=== PATIENT | female | born 1950 ===

== ENCOUNTER 2016-10-07 18:35 | Inpatient (IN) | payer MEDICARE ==
--- NOTE | 2016-10-07 19:11 | Emergency Department Report ---
Chief Complaint: Extremity Injury, Lower Stated Complaint: LEGS SWELLING Time Seen by Provider: 10/07/16 19:07 - HPI History of Present Illness: Patient is a 66 y/o female with alcohol addiction who presents due to bilateral leg swelling x 2 days. Patient denies any SOB. Patient states that she has dull pressure in her chest. She denies any nausea, vomiting, diaphoresis or arm pain. Patient is here for medical clearance for admission to [place] for alcohol addiction. No SI or HI. - ROS Review of Systems: see HPI - Exam Vital Signs: Vital Signs 10/07/16 18:58 Temperature 99 F Pulse Rate 103 H Respiratory 20 Rate Blood Pressure 127/68 O2 Sat by Pulse 100 Oximetry Physical Exam: BILATERAL LOWER LEG PITTING EDEMA MSE screening note: Focused history and physical exam performed. Due to findings the following was ordered:CHEST PAIN PROTOCOL ED Disposition for MSE Condition: Stable
[2016-10-07 20:29] LABS: Hematocrit 27.3 % (30.3-42.9); Hemoglobin 9.1 gm/dl (10.1-14.3); Mean Corpuscular HGB Conc 33 % (30-34); Mean Corpuscular Hemoglobin 35 pg (28-32); Mean Corpuscular Volume 105 fl (79-97); Platelet Count 186 K/mm3 (140-440); Red Blood Count 2.59 M/mm3 (3.65-5.03); Red Cell Distribution Width 14.9 % (13.2-15.2); White Blood Count 3.2 K/mm3 (4.5-11.0)
[2016-10-07 20:50] LABS: Anion Gap 17 mmol/L; BUN/Creatinine Ratio 16.66; Blood Urea Nitrogen 10 mg/dL (7-17); Calcium 8.7 mg/dL (8.4-10.2); Carbon Dioxide 24 mmol/L (22-30); Chloride 104.6 mmol/L (98-107); Glucose 92 mg/dL (65-100); Potassium 4.2 mmol/L (3.6-5.0); Sodium 141 mmol/L (137-145)
[2016-10-07 21:16] LABS: Urine Drugs of Abuse Note Disclamer
[2016-10-07 21:28] LABS: Basophils % (Manual) 0 % (0.0-1.8); Blastocytes % (Manual) 0 %
[2016-10-07 21:31] LABS: Anisocytosis Few; Diff Status Complete; Platelet Estimate Consistent w Auto
[2016-10-07 21:49] LABS: Bacteria,Urine 1+ /HPF (Negative); Bilirubin,Urine NEG (Negative); Blood,Urine NEG (Negative); Ketones,Urine NEG (Negative); Leukocyte Esterase,Urine SM (Negative); Nitrite,Urine NEG (Negative); Protein,Urine <15 mg/dL mg/dL (Negative); Urobilinogen,Urine < 2.0 mg/dL (<2.0)
--- NOTE | 2016-10-08 10:42 | Emergency Department Report ---
ED General Adult HPI - General Chief complaint: Extremity Problem,Nontraumatic Stated complaint: LEGS SWELLING Time Seen by Provider: 10/08/16 06:24 Source: patient, RN notes reviewed, old records reviewed Mode of arrival: Ambulatory Limitations: Physical Limitation - History of Present Illness Initial comments: This is a 66-year-old female, previously unknown to me. Past medical history includes hypertension, high cholesterol, congestive heart failure (does not know her ejection fraction), had a recent cardiac catheterization 3 weeks ago at [facility] in [facility] (states my heart is very weak), HIV. Patient does not know her CD4 count, but reports undetectable viral load. She is on highly active antiretroviral therapy. The patient presents to the ER with 3 days of lower extremity swelling. The extremity swelling is constant. There are no dietary indiscretions. She reports compliance with her medications. She also complains of chest pain. The chest pain is central and left-sided. It radiates to the jaw. It is intermittent. Has no exacerbating or relieving factors. -: Gradual Location: chest, left, right, lower extremity Radiation: neck Severity scale (0 -10): 8 Quality: aching Consistency: intermittent Improves with: none Worsens with: none Associated Symptoms: chest pain, loss of appetite, shortness of breath, weakness - Related Data Home Medications Medication Instructions Recorded Confirmed Last Taken Bisoprolol Fumarate [Zebeta] 2.5 mg PO BID 10/07/16 10/07/16 10/07/16 Dicyclomine [Bentyl] 10 mg PO QID 10/07/16 10/07/16 10/07/16 Emtricitabine/Tenofovir [Truvada 2 each PO DAILY 10/07/16 10/08/16 10/07/16 100 mg-150 mg Tablet] Gabapentin [Neurontin] 300 mg PO Q8HR 10/07/16 10/07/16 Unknown Hydroxyzine HCl 25 mg PO Q8H 10/07/16 10/07/16 Unknown Insentress 400 mg PO BID 10/07/16 10/08/16 10/07/16 Lisinopril [Zestril TAB] 10 mg PO QDAY 10/07/16 10/07/16 10/07/16 Meloxicam [Mobic] 7.5 mg PO BID 10/07/16 10/07/16 10/06/16 Pantoprazole [Protonix] 40 mg PO QDAY 10/07/16 10/07/16 10/07/16 Potassium Chloride 10 meq PO DAILY 10/07/16 10/07/16 Unknown Spironolactone [Aldactone] 25 mg PO QDAY 10/07/16 10/07/16 10/07/16 Sucralfate [Carafate] 2 gm PO HS 10/07/16 10/07/16 10/06/16 ALPRAZolam [Xanax TAB] 0.5 mg PO QHS PRN 10/08/16 10/08/16 Unknown Ciprofloxacin HCl [Ciprofloxacin 500 mg PO Q12H 10/08/16 10/08/16 Unknown TAB] Oxycodone HCl/Acetaminophen 1 each PO Q6HR PRN 10/08/16 10/08/16 Unknown [Percocet 10/325 mg] Pantoprazole [Protonix] 40 mg PO QDAY 10/08/16 10/08/16 Unknown Pravastatin Sodium [Pravastatin] 80 mg PO QHS 10/08/16 10/08/16 Unknown Promethazine [Phenergan TAB] 25 mg PO Q4H PRN 10/08/16 10/08/16 Unknown Spironolactone [Aldactone] 25 mg PO QDAY 10/08/16 10/08/16 Unknown Sulfamethoxazole/Trimethoprim 1 each PO DAILY 10/08/16 10/08/16 Unknown [Sulfamethoxazole-Tmp Ss Tablet] Allergies Allergy/AdvReac Type Severity Reaction Status Date / Time codeine Allergy Nausea Verified 10/07/16 18:48 Penicillins Allergy Rash Verified 10/07/16 18:48 sulfamethoxazole Allergy Nausea Verified 10/07/16 18:48 [From Bactrim] trimethoprim [From Bactrim] Allergy Nausea Verified 10/07/16 18:48 ED Review of Systems ROS: Stated complaint: LEGS SWELLING Other details as noted in HPI Constitutional: denies: fever Respiratory: see HPI, shortness of breath Cardiovascular: chest pain, dyspnea on exertion, edema Gastrointestinal: denies: abdominal pain, nausea, diarrhea Genitourinary: denies: urgency, dysuria, discharge Musculoskeletal: myalgia. 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 - Social History Smoking Status: Current Every Day Smoker Substance Use Type: Alcohol, Non Opiate Pain, Prescribed - Medications Home Medications: Home Medications Medication Instructions Recorded Confirmed Last Taken Type Bisoprolol Fumarate [Zebeta] 2.5 mg PO BID 10/07/16 10/07/16 10/07/16 History Dicyclomine [Bentyl] 10 mg PO QID 10/07/16 10/07/16 10/07/16 History Emtricitabine/Tenofovir [Truvada 2 each PO DAILY 10/07/16 10/08/16 10/07/16 History 100 mg-150 mg Tablet] Gabapentin [Neurontin] 300 mg PO Q8HR 10/07/16 10/07/16 Unknown History Hydroxyzine HCl 25 mg PO Q8H 10/07/16 10/07/16 Unknown History Insentress 400 mg PO BID 10/07/16 10/08/16 10/07/16 History Lisinopril [Zestril TAB] 10 mg PO QDAY 10/07/16 10/07/16 10/07/16 History Meloxicam [Mobic] 7.5 mg PO BID 10/07/16 10/07/16 10/06/16 History Pantoprazole [Protonix] 40 mg PO QDAY 10/07/16 10/07/16 10/07/16 History Potassium Chloride 10 meq PO DAILY 10/07/16 10/07/16 Unknown History Spironolactone [Aldactone] 25 mg PO QDAY 10/07/16 10/07/16 10/07/16 History Sucralfate [Carafate] 2 gm PO HS 10/07/16 10/07/16 10/06/16 History ALPRAZolam [Xanax TAB] 0.5 mg PO QHS PRN 10/08/16 10/08/16 Unknown History Ciprofloxacin HCl [Ciprofloxacin 500 mg PO Q12H 10/08/16 10/08/16 Unknown History TAB] Oxycodone HCl/Acetaminophen 1 each PO Q6HR PRN 10/08/16 10/08/16 Unknown History [Percocet 10/325 mg] Pantoprazole [Protonix] 40 mg PO QDAY 10/08/16 10/08/16 Unknown History Pravastatin Sodium [Pravastatin] 80 mg PO QHS 10/08/16 10/08/16 Unknown History Promethazine [Phenergan TAB] 25 mg PO Q4H PRN 10/08/16 10/08/16 Unknown History Spironolactone [Aldactone] 25 mg PO QDAY 10/08/16 10/08/16 Unknown History Sulfamethoxazole/Trimethoprim 1 each PO DAILY 10/08/16 10/08/16 Unknown History [Sulfamethoxazole-Tmp Ss Tablet] ED Physical Exam - General Limitations: Physical Limitation General appearance: alert, in no apparent distress - Head Head exam: Present: atraumatic, normocephalic - Eye Eye exam: Present: normal appearance, EOMI. Absent: nystagmus - ENT ENT exam: Present: normal exam, normal orophraynx, mucous membranes moist, normal external ear exam - Neck Neck exam: Present: normal inspection, full ROM, other (5 cm of JVD ). Absent: tenderness, meningismus - Respiratory Respiratory exam: Present: prolonged expiratory. Absent: respiratory distress, wheezes, rales, rhonchi - Cardiovascular Cardiovascular Exam: Present: regular rate, normal rhythm, normal heart sounds. Absent: bradycardia, tachycardia, irregular rhythm, systolic murmur, diastolic murmur, rubs, gallop - GI/Abdominal GI/Abdominal exam: Present: soft, normal bowel sounds. Absent: distended, tenderness, guarding, rebound, rigid, pulsatile mass - Extremities Exam Extremities exam: Present: full ROM, tenderness, normal capillary refill, pedal edema, calf tenderness, other (there is 3+ pitting edema in the bilateral lower extremities. There is no palpable cord. There is a negative Homans sign.) - Back Exam Back exam: Present: normal inspection, full ROM. Absent: tenderness, CVA tenderness (R), CVA tenderness (L), muscle spasm, paraspinal tenderness, vertebral tenderness - Neurological Exam Neurological exam: Present: alert, oriented X3, other (Extraocular movements intact. Tongue midline. No facial droop. Facial sensation intact to light touch in the V1, V2, V3 distribution bilaterally. 5 and 5 strength in 4 extremities.. Sensation is intact to light touch in 4 extremities.). Absent: motor sensory deficit - Psychiatric Psychiatric exam: Absent: homicidal ideation, suicidal ideation - Skin Skin exam: Present: warm, dry, intact, normal color. Absent: rash ED Course Vital Signs 10/07/16 10/08/16 10/08/16 18:58 01:55 08:48 Temperature 99 F 98.6 F Pulse Rate 103 H 50 L 87 Respiratory 20 18 Rate Blood Pressure 127/68 130/62 O2 Sat by Pulse 100 99 Oximetry 10/08/16 10/08/16 10/08/16 08:50 08:56 08:58 Temperature Pulse Rate 53 L 49 L 49 L Respiratory 15 21 17 Rate Blood Pressure 139/59 139/59 139/59 O2 Sat by Pulse 99 99 99 Oximetry 10/08/16 10/08/16 10/08/16 09:00 09:04 10:04 Temperature 98.3 F Pulse Rate 49 L 50 L Respiratory 20 15 Rate Blood Pressure 143/57 143/57 O2 Sat by Pulse 98 Oximetry - Reevaluation(s) Reevaluation #1: 10/08/16 11:10 Differential diagnosis: Peripheral edema, acute coronary syndrome, pneumonia, pulmonary embolus, congestive heart failure, cardiomyopathy, pleuritis, pericarditis, myocarditis, lower extremity edema, DVT Assessment and plan: 66-year-old female with lotion may swelling, chest pain that radiates to the neck. Most likely CHF. Troponin is negative 3. EKG abnormal, without prior for comparison. We are attempting to obtain old medical records from her recent cardiac catheterization. Of note, the patient is also requesting medical clearance for alcohol detoxification. She has no indication for 1013 at this time. She is clinically sober. Laboratory studies are pending. Lower extremity DVT studies pending. D-dimer is pending. Reevaluation #2: 10/08/16 13:30 CT scan of the chest consistent with CHF, demonstrates no pulmonary embolus. Nonspecific inflammatory process suggested on CT scan. Currently feel the patient's presentation is consistent with CHF. She does not have fever, she does not have leukocytosis, and given her JVD, dyspnea, lower extremity edema, I think CHF is the most likely diagnosis, I believe that she will benefit from antibiotic therapy. The Hospital physician, Dr. Watts accepts the patient to his service. ED Medical Decision Making - Lab Data Result diagrams: 10/07/16 19:48 10/07/16 19:53 Vital Signs 10/07/16 10/08/16 10/08/16 18:58 01:55 08:48 Temperature 99 F 98.6 F Pulse Rate 103 H 50 L 87 Respiratory 20 18 Rate Blood Pressure 127/68 130/62 O2 Sat by Pulse 100 99 Oximetry 10/08/16 10/08/16 10/08/16 08:50 08:56 08:58 Temperature Pulse Rate 53 L 49 L 49 L Respiratory 15 21 17 Rate Blood Pressure 139/59 139/59 139/59 O2 Sat by Pulse 99 99 99 Oximetry 10/08/16 10/08/16 10/08/16 09:00 09:04 10:04 Temperature 98.3 F Pulse Rate 49 L 50 L Respiratory 20 15 Rate Blood Pressure 143/57 143/57 O2 Sat by Pulse 98 Oximetry Lab Results 10/07/16 10/07/16 10/07/16 Range/Units 19:48 19:48 19:52 WBC 3.2 L (4.5-11.0) K/mm3 RBC 2.59 L (3.65-5.03) M/mm3 Hgb 9.1 L (10.1-14.3) gm/dl Hct 27.3 L (30.3-42.9) % MCV 105 H (79-97) fl MCH 35 H (28-32) pg MCHC 33 (30-34) % RDW 14.9 (13.2-15.2) % Plt Count 186 (140-440) K/mm3 Carver % (Auto) Hall Worker Add Manual Diff Complete Total Counted 100 Seg Neuts % (Manual) 56.0 (40.0-70.0) % Band Neutrophils % 0 % Lymphocytes % (Manual) 31.0 (13.4-35.0) % Reactive Lymphs % (Man) 0 % Monocytes % (Manual) 11.0 H (0.0-7.3) % Eosinophils % (Manual) 2.0 (0.0-4.3) % Basophils % (Manual) 0 (0.0-1.8) % Metamyelocytes % 0 % Myelocytes % 0 % Promyelocytes % 0 % Blast Cells % 0 % Nucleated RBC % Not Reportable Seg Neutrophils # Man 1.8 (1.8-7.7) K/mm3 Band Neutrophils # 0.0 K/mm3 Lymphocytes # (Manual) 1.0 L (1.2-5.4) K/mm3 Abs React Lymphs (Man) 0.0 K/mm3 Monocytes # (Manual) 0.4 (0.0-0.8) K/mm3 Eosinophils # (Manual) 0.1 (0.0-0.4) K/mm3 Basophils # (Manual) 0.0 (0.0-0.1) K/mm3 Metamyelocytes # 0.0 K/mm3 Myelocytes # 0.0 K/mm3 Promyelocytes # 0.0 K/mm3 Blast Cells # 0.0 K/mm3 WBC Morphology Not Reportable Hypersegmented Neuts Not Reportable Hyposegmented Neuts Not Reportable Hypogranular Neuts Not Reportable Smudge Cells Not Reportable Toxic Granulation Not Reportable Toxic Vacuolation Not Reportable Dohle Bodies Not Reportable Pelger-Huet Anomaly Not Reportable Erika Rods Not Reportable Platelet Estimate Consistent w auto Clumped Platelets Not Reportable Plt Clumps, EDTA Not Reportable Large Platelets Not Reportable Giant Platelets Not Reportable Platelet Satelliting Not Reportable Plt Morphology Comment Not Reportable RBC Morphology Not Reportable Dimorphic RBCs Not Reportable Polychromasia Not Reportable Hypochromasia Not Reportable Poikilocytosis Not Reportable Anisocytosis Few Microcytosis Not Reportable Macrocytosis Not Reportable Spherocytes Not Reportable Pappenheimer Bodies Not Reportable Sickle Cells Not Reportable Target Cells Not Reportable Tear Drop Cells Not Reportable Ovalocytes Not Reportable Helmet Cells Not Reportable [place] Bodies Not Reportable [place] Rings Not Reportable [place] Cells Not Reportable Bite Cells Not Reportable Crenated Cell Not Reportable Elliptocytes Not Reportable Acanthocytes (Spur) Not Reportable Rouleaux Not Reportable Hemoglobin C Crystals Not Reportable Schistocytes Not Reportable Malaria parasites Not Reportable Andrew Bodies Not Reportable Hem Pathologist Commnt No Sodium (137-145) mmol/L Potassium (3.6-5.0) mmol/L Chloride (98-107) mmol/L Carbon Dioxide (22-30) mmol/L Anion Gap mmol/L BUN (7-17) mg/dL Creatinine (0.7-1.2) mg/dL Estimated GFR ml/min BUN/Creatinine Ratio % Glucose (65-100) mg/dL Calcium (8.4-10.2) mg/dL Troponin T < 0.010 (0.00-0.029) ng/mL Urine Color (Yellow) Urine Turbidity (Clear) Urine pH (5.0-7.0) Ur Specific Chloride (1.003-1.030) Urine Protein (Negative) mg/dL Urine Glucose (UA) (Negative) mg/dL Urine Ketones (Negative) mg/dL Urine Blood (Negative) Urine Nitrite (Negative) Urine Bilirubin (Negative) Urine Urobilinogen (<2.0) mg/dL Ur Leukocyte Esterase (Negative) Urine WBC (Auto) (0.0-6.0) /HPF Urine RBC (Auto) (0.0-6.0) /HPF U Epithel Cells (Auto) (0-13.0) /HPF Urine Bacteria (Auto) (Negative) /HPF Urine Opiates Screen Urine Methadone Screen Ur Barbiturates Screen Ur Phencyclidine Scrn Ur Amphetamines Screen U Benzodiazepines Scrn Urine Cocaine Screen U Marijuana (THC) Screen Drugs of Abuse Note Plasma/Serum Alcohol < 0.01 (0-0.07) gm% 10/07/16 10/07/16 10/07/16 Range/Units 19:53 22:05 Unknown WBC (4.5-11.0) K/mm3 RBC (3.65-5.03) M/mm3 Hgb (10.1-14.3) gm/dl Hct (30.3-42.9) % MCV (79-97) fl MCH (28-32) pg MCHC (30-34) % RDW (13.2-15.2) % Plt Count (140-440) K/mm3 Carver % (Auto) Add Manual Diff Total Counted Seg Neuts % (Manual) (40.0-70.0) % Band Neutrophils % % Lymphocytes % (Manual) (13.4-35.0) % Reactive Lymphs % (Man) % Monocytes % (Manual) (0.0-7.3) % Eosinophils % (Manual) (0.0-4.3) % Basophils % (Manual) (0.0-1.8) % Metamyelocytes % % Myelocytes % % Promyelocytes % % Blast Cells % % Nucleated RBC % Seg Neutrophils # Man (1.8-7.7) K/mm3 Band Neutrophils # K/mm3 Lymphocytes # (Manual) (1.2-5.4) K/mm3 Abs React Lymphs (Man) K/mm3 Monocytes # (Manual) (0.0-0.8) K/mm3 Eosinophils # (Manual) (0.0-0.4) K/mm3 Basophils # (Manual) (0.0-0.1) K/mm3 Metamyelocytes # K/mm3 Myelocytes # K/mm3 Promyelocytes # K/mm3 Blast Cells # K/mm3 WBC Morphology Hypersegmented Neuts Hyposegmented Neuts Hypogranular Neuts Smudge Cells Toxic Granulation Toxic Vacuolation Dohle Bodies Pelger-Huet Anomaly Erika Rods Platelet Estimate Clumped Platelets Plt Clumps, EDTA Large Platelets Giant Platelets Platelet Satelliting Plt Morphology Comment RBC Morphology Dimorphic RBCs Polychromasia Hypochromasia Poikilocytosis Anisocytosis Microcytosis Macrocytosis Spherocytes Pappenheimer Bodies Sickle Cells Target Cells Tear Drop Cells Ovalocytes Helmet Cells [place] Bodies [place] Rings Jeff Cells Bite Cells Crenated Cell Elliptocytes Acanthocytes (Spur) Rouleaux Hemoglobin C Crystals Schistocytes Malaria parasites Andrew Bodies Hem Pathologist Commnt Sodium 141 (137-145) mmol/L Potassium 4.2 (3.6-5.0) mmol/L Chloride 104.6 (98-107) mmol/L Carbon Dioxide 24 (22-30) mmol/L Anion Gap 17 mmol/L BUN 10 (7-17) mg/dL Creatinine 0.6 L (0.7-1.2) mg/dL Estimated GFR > 60 ml/min BUN/Creatinine Ratio 16.66 % Glucose 92 (65-100) mg/dL Calcium 8.7 (8.4-10.2) mg/dL Troponin T < 0.010 (0.00-0.029) ng/mL Urine Color Yellow (Yellow) Urine Turbidity Clear (Clear) Urine pH 5.0 (5.0-7.0) Ur Specific Chloride 1.015 (1.003-1.030) Urine Protein <15 mg/dl (Negative) mg/dL Urine Glucose (UA) Neg (Negative) mg/dL Urine Ketones Neg (Negative) mg/dL Urine Blood Neg (Negative) Urine Nitrite Neg (Negative) Urine Bilirubin Neg (Negative) Urine Urobilinogen < 2.0 (<2.0) mg/dL Ur Leukocyte Esterase Sm (Negative) Urine WBC (Auto) 1.0 (0.0-6.0) /HPF Urine RBC (Auto) 4.0 (0.0-6.0) /HPF U Epithel Cells (Auto) 4.0 (0-13.0) /HPF Urine Bacteria (Auto) 1+ (Negative) /HPF Urine Opiates Screen Urine Methadone Screen Ur Barbiturates Screen Ur Phencyclidine Scrn Ur Amphetamines Screen U Benzodiazepines Scrn Urine Cocaine Screen U Marijuana (THC) Screen Drugs of Abuse Note Plasma/Serum Alcohol (0-0.07) gm% 10/07/16 10/08/16 Range/Units Unknown 02:27 WBC (4.5-11.0) K/mm3 RBC (3.65-5.03) M/mm3 Hgb (10.1-14.3) gm/dl Hct (30.3-42.9) % MCV (79-97) fl MCH (28-32) pg MCHC (30-34) % RDW (13.2-15.2) % Plt Count (140-440) K/mm3 Carver % (Auto) Add Manual Diff Total Counted Seg Neuts % (Manual) (40.0-70.0) % Band Neutrophils % % Lymphocytes % (Manual) (13.4-35.0) % Reactive Lymphs % (Man) % Monocytes % (Manual) (0.0-7.3) % Eosinophils % (Manual) (0.0-4.3) % Basophils % (Manual) (0.0-1.8) % Metamyelocytes % % Myelocytes % % Promyelocytes % % Blast Cells % % Nucleated RBC % Seg Neutrophils # Man (1.8-7.7) K/mm3 Band Neutrophils # K/mm3 Lymphocytes # (Manual) (1.2-5.4) K/mm3 Abs React Lymphs (Man) K/mm3 Monocytes # (Manual) (0.0-0.8) K/mm3 Eosinophils # (Manual) (0.0-0.4) K/mm3 Basophils # (Manual) (0.0-0.1) K/mm3 Metamyelocytes # K/mm3 Myelocytes # K/mm3 Promyelocytes # K/mm3 Blast Cells # K/mm3 WBC Morphology Hypersegmented Neuts Hyposegmented Neuts Hypogranular Neuts Smudge Cells Toxic Granulation Toxic Vacuolation Dohle Bodies Pelger-Huet Anomaly Erika Rods Platelet Estimate Clumped Platelets Plt Clumps, EDTA Large Platelets Giant Platelets Platelet Satelliting Plt Morphology Comment RBC Morphology Dimorphic RBCs Polychromasia Hypochromasia Poikilocytosis Anisocytosis Microcytosis Macrocytosis Spherocytes Pappenheimer Bodies Sickle Cells Target Cells Tear Drop Cells Ovalocytes Helmet Cells [place] Bodies [place] Rings [place] Cells Bite Cells Crenated Cell Elliptocytes Acanthocytes (Spur) Rouleaux Hemoglobin C Crystals Schistocytes Malaria parasites Andrew Bodies Hem Pathologist Commnt Sodium (137-145) mmol/L Potassium (3.6-5.0) mmol/L Chloride (98-107) mmol/L Carbon Dioxide (22-30) mmol/L Anion Gap mmol/L BUN (7-17) mg/dL Creatinine (0.7-1.2) mg/dL Estimated GFR ml/min BUN/Creatinine Ratio % Glucose (65-100) mg/dL Calcium (8.4-10.2) mg/dL Troponin T < 0.010 (0.00-0.029) ng/mL Urine Color (Yellow) Urine Turbidity (Clear) Urine pH (5.0-7.0) Ur Specific Chloride (1.003-1.030) Urine Protein (Negative) mg/dL Urine Glucose (UA) (Negative) mg/dL Urine Ketones (Negative) mg/dL Urine Blood (Negative) Urine Nitrite (Negative) Urine Bilirubin (Negative) Urine Urobilinogen (<2.0) mg/dL Ur Leukocyte Esterase (Negative) Urine WBC (Auto) (0.0-6.0) /HPF Urine RBC (Auto) (0.0-6.0) /HPF U Epithel Cells (Auto) (0-13.0) /HPF Urine Bacteria (Auto) (Negative) /HPF Urine Opiates Screen Presumptive negative Urine Methadone Screen Presumptive negative Ur Barbiturates Screen Presumptive negative Ur Phencyclidine Scrn Presumptive negative Ur Amphetamines Screen Presumptive negative U Benzodiazepines Scrn Presumptive positive Urine Cocaine Screen Presumptive negative U Marijuana (THC) Screen Presumptive negative Drugs of Abuse Note Disclamer Plasma/Serum Alcohol (0-0.07) gm% - EKG Data When compared to previous EKG there are: previous EKG unavailable 10/08/16 11:12 Sinus bradycardia, 50 bpm, borderline left axis deviation, nonspecific T-wave or melena, abnormal EKG, no prior for comparison, there is no prior EKG available for comparison. This is not consistent with STEMI. - Radiology Data Radiology results: report reviewed, image reviewed X-ray of the chest demonstrates cardiomegaly, possible lower lobe atelectasis versus infiltrate, bony thorax is intact, mild cephalization. LIVE [facility],MARIA ELENA VELAZQUEZ Female : 1950 [facility]# [id number] 10/08/16 11:41 - Radiology Dept. Note by REID SMITH [facility] Num: [id number] : 1950 Patient Age: 66 VASCULAR LAB.PRELIMINARY REPORT.BLE VENOUS DUPLEX DONE.NO EVIDENCE OF DVT/SVT IN VESSELS VISUALIZED. Initialized on 10/08/16 11:41 - END OF NOTE Critical care attestation.: If time is entered above; I have spent that time in minutes in the direct care of this critically ill patient, excluding procedure time. ED Disposition Clinical Impression: CHF exacerbation, Chest pain Disposition: OP ADMITTED IP TO THIS HOSP Is pt being admited?: Yes Does the pt Need Aspirin: Yes Condition: Good Instructions: Chest Pain (ED) Referrals: PRIMARY CARE, [Primary Care Provider] - 3-5 Days
--- NOTE | 2016-10-08 10:55 | XRay Report ---
AP CHEST: HISTORY: chest pain No comparison. Mild cardiomegaly is suspected. Mild segmental atelectasis is noted in the lower lobes, otherwise, the lungs are clear. No evidence for pneumonia, pleural effusion or pneumothorax. The bony thorax is intact. IMPRESSION: Mild cardiomegaly.
[2016-10-08 11:56] LABS: INR 1.06 (0.87-1.13)
[2016-10-08] MEDS ORDERED: NACL ONE (12:27)
--- NOTE | 2016-10-08 13:24 | Admit Criteria Form ---
Admission Criteria Documentation: HEART FAILURE: COMMON COMPLICATIONS Clinical Indications for Inpatient Care (Place 'X' for any and all applicable criteria): Ongoing inpatient care may be indicated for heart failure with ANY ONE of the following (1)(2)(3)(4)(5): [ ]I. Ongoing need for care for primary condition requiring frequent therapy adjustments because of changes in cardiac function (eg, drug dosage changes for drugs that are renally metabolized) [ ]II. New-onset heart failure [ ]III. Heart failure with decreased urine output not responsive to attempts to optimize volume status [ ]IV. Acute cardiac ischemia causing or associated with failure [ X]V. Complications of heart failure, including ANY ONE of the following: [ ]a) Pericardial effusion [ ]b) Symptomatic pleural effusion [ ]c) O2 saturation <90% or PO2 < 60 mm Hg (8.0 kPa) on room air or require baseline supplemental O2 [ ]d) Tachypnea [X ]e) Dyspnea [ ]f) Syncope [ ]g) Change in mental status [ ]h) Acute renal insufficiency that is severe (reduction of more than 50% in estimated glomerular filtration rate from baseline) or progressive reduction of more than 25% in estimated glomerular filtration rate from baseline, with creatinine continuing to rise) [ ]i) Hemodynamic instability [ ]j) Anasarca [ ]k) Clinically significant metabolic abnormalities due to heart failure (eg, new-onset metabolic acidosis) Extended stay beyond goal length of stay for primary condition may be needed until ALL of the following are present(1)(3): [ ]a) Stable and effective diuretic regimen established (or patient on stable dialysis regimen if in chronic renal failure) [ ]b) Breathing comfortably at rest [ ]c) Saturation of arterial oxygen greater than 90% or at acceptable baseline [ ]d) Pulmonary edema absent or improved [ ]e) Hemodynamic stability [ ]f) Volume status acceptable on oral medication [ ]g) Peripheral or sacral edema absent or improved [ ]h) Renal function stable and manageable at a lower level of care [ ]i) Complications (eg, pleural effusion) resolved or manageable at a lower level of care [ ]j) Patient or caregiver has received written discharge instructions or educational material addressing activity level, diet, discharge medications, follow-up appointment, weight monitoring, and what to do if symptoms worsen The original [facility] content created by [email or web address] has been revised. The portions of the content which have been revised are identified through the use of italic text or in bold, and [facility] has neither reviewed nor approved the modified material.All other unmodified content is copyright [facility]. Please see references footnoted in the original [facility] edition 2016 Admission Criteria Met: Yes
--- NOTE | 2016-10-08 13:26 | Cat Scan Report ---
CTA chest: History: Chest pain. Findings: No definite evidence of aortic aneurysm or pulmonary embolism. No mediastinal mass or adenopathy. No pleural or pericardial effusion. Bilateral pleural thickening. Infiltrates right and left lower lobe suggestive of pneumonitis. Discoid atelectasis left lower lobe. Impression: Infiltrates right and left lower lobe suggestive of pneumonitis. No evidence of pulmonary embolism.
[2016-10-08] MEDS ORDERED: LASIX IV ONE (13:29)
[2016-10-08] MEDS ORDERED: BABY ASPIRIN PO ONE (13:31)
[2016-10-08] MEDS ORDERED: XANAX PO PRN (15:44)
[2016-10-08] MEDS ORDERED: NON-FORMULARY (Oxycodone Hcl/Acetaminophen [Percocet 10/325 Mg] 1 EACH) PO PRN (15:44)
[2016-10-08] MEDS ORDERED: ATARAX PO SCH (16:00)
[2016-10-08] MEDS ORDERED: ROXICODONE PO PRN (16:18)
--- NOTE | 2016-10-08 16:35 | History and Physical Report ---
History of Present Illness Date of examination: 10/08/16 Date of admission: 10/08/16 13:51 Chief complaint: Leg swelling History of present illness: Patient is a 66-year-old woman with a history of HIV, CHF, dyslipidemia, arthritis, neuropathy, hypertension, tobacco dependancy and alcohol abuse who has been in detox program here in [place] but she is from [place]. She had a recent cardiac catherization 3 weeks ago at [facility] in [place], [place]. She presents with progressive worse bilateral leg swelling that started 3-4 days ago associated with moderately intense intermittent substernal radiating to jaw chest pains without aggravating or relieving factors. Past History Past Medical History: other (as hpi) Past Surgical History: cholecystectomy, hysterectomy, Other (foot and kidney surgery) Social history: smoking, alcohol abuse, full code. denies: IV drug use Family history: hypertension Medications and Allergies Allergies Allergy/AdvReac Type Severity Reaction Status Date / Time codeine Allergy Nausea Verified 10/07/16 18:48 Penicillins Allergy Rash Verified 10/07/16 18:48 sulfamethoxazole Allergy Nausea Verified 10/07/16 18:48 [From Bactrim] trimethoprim [From Bactrim] Allergy Nausea Verified 10/07/16 18:48 Home Medications Medication Instructions Recorded Confirmed Last Taken Type Bisoprolol Fumarate [Zebeta] 2.5 mg PO BID 10/07/16 10/07/16 10/07/16 History Dicyclomine [Bentyl] 10 mg PO QID 10/07/16 10/07/16 10/07/16 History Emtricitabine/Tenofovir [Truvada 2 each PO DAILY 10/07/16 10/08/16 10/07/16 History 100 mg-150 mg Tablet] Gabapentin [Neurontin] 300 mg PO Q8HR 10/07/16 10/07/16 Unknown History Hydroxyzine HCl 25 mg PO Q8H 10/07/16 10/07/16 Unknown History Insentress 400 mg PO BID 10/07/16 10/08/16 10/07/16 History Lisinopril [Zestril TAB] 10 mg PO QDAY 10/07/16 10/07/16 10/07/16 History Meloxicam [Mobic] 7.5 mg PO BID 10/07/16 10/07/16 10/06/16 History Pantoprazole [Protonix] 40 mg PO QDAY 10/07/16 10/07/16 10/07/16 History Potassium Chloride 10 meq PO DAILY 10/07/16 10/07/16 Unknown History Spironolactone [Aldactone] 25 mg PO QDAY 10/07/16 10/07/16 10/07/16 History Sucralfate [Carafate] 2 gm PO HS 10/07/16 10/07/16 10/06/16 History ALPRAZolam [Xanax TAB] 0.5 mg PO QHS PRN 10/08/16 10/08/16 Unknown History Ciprofloxacin HCl [Ciprofloxacin 500 mg PO Q12H 10/08/16 10/08/16 Unknown History TAB] Oxycodone HCl/Acetaminophen 1 each PO Q6HR PRN 10/08/16 10/08/16 Unknown History [Percocet 10/325 mg] Pantoprazole [Protonix] 40 mg PO QDAY 10/08/16 10/08/16 Unknown History Pravastatin Sodium [Pravastatin] 80 mg PO QHS 10/08/16 10/08/16 Unknown History Promethazine [Phenergan TAB] 25 mg PO Q4H PRN 10/08/16 10/08/16 Unknown History Spironolactone [Aldactone] 25 mg PO QDAY 10/08/16 10/08/16 Unknown History Sulfamethoxazole/Trimethoprim 1 each PO DAILY 10/08/16 10/08/16 Unknown History [Sulfamethoxazole-Tmp Ss Tablet] Active Meds: Active Medications Alprazolam (Xanax) 0.5 mg PO QHS PRN PRN Reason: Anxiety Emtricitabine (Emtriva) 200 mg PO QDAY MORIAH Enoxaparin Sodium (Lovenox) 40 mg SUB-Q QDAY@2200 MORIAH Gabapentin (Neurontin) 300 mg PO Q8HR MORIAH Hydroxyzine HCl (Atarax) 25 mg PO Q8H MORIAH Lisinopril (Zestril) 10 mg PO QDAY MORIAH Miscellaneous Medication (Bisoprolol Fumarate [Zebeta]) 2.5 mg PO BID MORIAH Oxycodone HCl (Roxicodone) 5 mg PO Q6H PRN PRN Reason: Pain, Moderate (4-6) Oxycodone/Acetaminophen (Percocet 5/325) 1 tab PO Q4H PRN PRN Reason: Pain, Moderate (4-6) Pantoprazole Sodium (Protonix) 40 mg PO QDAY MORIAH Raltegravir (Isentress) 400 mg PO BID MORIAH Sucralfate (Carafate) 2 gm PO HS MORIAH Tenofovir Disoproxil Fumarate (Viread) 300 mg PO QDAY MORIAH Trimethoprim/Sulfamethoxazole (Bactrim Ds) 0.5 each PO DAILY MORIAH Review of Systems All systems: negative (as HPI and all other ROS reviewed and negative.) Exam - Physical Exam Narrative exam: GEN: WDWN, NAD, AWAKE, ALERT, ORIENTATED x 3 HEENT: NCAT, PERRL, EOMI, OP CLEAR NECK: SUPPLE, NO THYROMEGALY, NO JVD, NO LAD CVS: RRR, NORMAL S1S2 LUNGS/CHEST: bilateral crackles, NORMAL CHEST EXPANSION B, GOOD AIR ENTRY B ABD: SOFT NTND, GBS, NO REBOUND OR GUARDING EXT/SKIN: +ble SIGNIFICANT EDEMA OR RASH MSK: FROM X 4 EXTREMITIES NEURO: CN 2-12 GROSSLY INTACT, NO new FOCAL DEFICITS PSY: CALM - Constitutional Vitals: Temp Pulse Resp BP Pulse Ox 98.3 F 50 L 15 143/57 98 10/08/16 09:04 10/08/16 10:04 10/08/16 10:04 10/08/16 10:04 10/08/16 09:00 Results - Labs CBC & Chem 7: 10/07/16 19:48 10/07/16 19:53 Assessment and Plan Patient is a 66-year-old woman with a history of HIV, CHF, dyslipidemia, arthritis, neuropathy, hypertension, tobacco dependancy and alcohol abuse who has been in detox program here in [place] but she is from [place]. She had a recent cardiac catherization 3 weeks ago at [facility] in [place], [place]. She presents with progressive worse bilateral leg swelling that started 3-4 days ago associated with moderately intense intermittent substernal radiating to jaw chest pains without aggravating or relieving factors. CTA chest shows bilateral infitrates, pneumonitis. During exam, pulse ox dropped to 78%. 1. Acute respiratory failure: O2, nebs 2. Acute Aspiration pneumonia: iv Levaquin 3. CHF, acute on chronic combined heart failure: TTE, iv lasix 4. HIV: continue home meds 5. Alcohol abuse, last drink > 1 week ago: thiamine and ativan prn 6. Tobacco dependancy, couseling done, give nicotine patch 7. DVT prophylaxis: sq lovenox 8. GI prophylaxis: protonix 9. Dyslipidemia: held 80mg pravastatin due to drug interaction full code disposition: inpatient care
[2016-10-08] MEDS ORDERED: BENADRYL IV PRN (16:45)
[2016-10-08] MEDS ORDERED: PROVENTIL IH PRN (16:45)
[2016-10-08] MEDS: PERCOCET 5/325 PO PRN (16:52)
[2016-10-08] MEDS: LASIX IV SCH (17:30)
[2016-10-08] MEDS: LEVAQUIN PO SCH (17:30)
[2016-10-08] MEDS: HABITROL TD SCH (17:30)
[2016-10-08] MEDS: VITAMIN B-1 PO SCH (17:30)
[2016-10-08] MEDS ORDERED: BISOPROLOL FUMARATE 2.5 MG PO SCH (22:00)
[2016-10-08] MEDS ORDERED: RALTEGRAVIR 400 MG PO SCH (22:00)
[2016-10-08] MEDS: CARAFATE PO SCH (23:40)
[2016-10-08] MEDS: NEURONTIN PO SCH (23:40)
[2016-10-09] MEDS: ISENTRESS PO SCH ×3 (00:10→21:49)
[2016-10-09] MEDS ORDERED: EMTRICITABINE PO SCH (10:00)
[2016-10-09] MEDS ORDERED: TENOFOVIR PO SCH (10:00)
[2016-10-09] MEDS ORDERED: SULFAMETHOXAZOLE PO SCH (10:00)
[2016-10-09] MEDS ORDERED: TRIMETHOPRIM PO SCH (10:00)
--- NOTE | 2016-10-09 10:44 | Vascular Lab Report ---
LOWER EXTREMITY VENOUS DUPLEX: REASON FOR EXAM: Swelling. COMMENTS ON THE RIGHT: All veins visualized are freely compressible without evidence of internal echogenicity. Flow is spontaneous and phasic throughout. COMMENTS ON THE LEFT: All veins visualized are freely compressible without evidence of internal echogenicity. Flow is spontaneous and phasic throughout. IMPRESSION: No evidence of acute or chronic deep venous thrombosis in either lower extremity.
[2016-10-09] MEDS ORDERED: PNEUMOVAX 23 IM ONE (12:00)
[2016-10-09] MEDS: EMTRIVA PO SCH (14:44)
[2016-10-09] MEDS: VIREAD PO SCH (14:44)
[2016-10-09] MEDS: VITAMIN B-1 PO SCH (14:44)
[2016-10-09] MEDS: HABITROL TD SCH (14:44)
[2016-10-09] MEDS: BACTRIM DS PO SCH (14:44)
[2016-10-09] MEDS: ZESTRIL PO SCH (14:44)
[2016-10-09] MEDS: PROTONIX PO SCH (14:44)
[2016-10-09] MEDS: NEURONTIN PO SCH ×2 (15:19→21:51)
--- NOTE | 2016-10-09 16:27 | Progress Note ---
Assessment and Plan Assessment and plan: Acute on chronic systolic CHF. Lasix iv, Bisoprolol po. fluid I/O Bilateral pneumonia. Started on Levaquin for pneumonia. HIV infection. Continue HAART. Alcohol abuse. Dyslipidemia DVT prophylaxis with Lovenox. FULL CODE STATUS History Interval history: less shortness of breath, No chest pain leg edema Hospitalist Physical - Physical exam Narrative exam: Gen appearance: not in acute distress, HEENT: Normocephalic, atraumatic Neck : supple, no JVD Lungs: Patient has crackles bibasilar, no wheezing . Heart : S1 and S2 regular, no murmurs rubs or gallop, Abdomen: soft nontender, nondistended, normal bowel sounds Extremities: Bilateral lower extremity edema, no clubbing or cyanosis, Neuro :awake alert oriented 3, no focal signs Psych :appropriate mood skin: No rash - Constitutional Vitals: Temp Pulse Resp BP Pulse Ox 98.0 F 56 L 18 117/59 95 10/08/16 22:03 10/08/16 22:03 10/08/16 22:03 10/08/16 22:03 10/09/16 11:12 Results - Labs CBC & Chem 7: 10/07/16 19:48 10/07/16 19:53 Labs: Laboratory Last Values WBC 3.2 K/mm3 (4.5-11.0) L 10/07/16 19:48 RBC 2.59 M/mm3 (3.65-5.03) L 10/07/16 19:48 Hgb 9.1 gm/dl (10.1-14.3) L 10/07/16 19:48 Hct 27.3 % (30.3-42.9) L 10/07/16 19:48 MCV 105 fl (79-97) H 10/07/16 19:48 MCH 35 pg (28-32) H 10/07/16 19:48 MCHC 33 % (30-34) 10/07/16 19:48 RDW 14.9 % (13.2-15.2) 10/07/16 19:48 Plt Count 186 K/mm3 (140-440) 10/07/16 19:48 [place] % (Auto) Neurology Physician 10/07/16 19:48 Add Manual Diff Complete 10/07/16 19:48 Total Counted 100 10/07/16 19:48 Seg Neuts % (Manual) 56.0 % (40.0-70.0) 10/07/16 19:48 Band Neutrophils % 0 % 10/07/16 19:48 Lymphocytes % (Manual) 31.0 % (13.4-35.0) 10/07/16 19:48 Reactive Lymphs % (Man) 0 % 10/07/16 19:48 Monocytes % (Manual) 11.0 % (0.0-7.3) H 10/07/16 19:48 Eosinophils % (Manual) 2.0 % (0.0-4.3) 10/07/16 19:48 Basophils % (Manual) 0 % (0.0-1.8) 10/07/16 19:48 Metamyelocytes % 0 % 10/07/16 19:48 Myelocytes % 0 % 10/07/16 19:48 Promyelocytes % 0 % 10/07/16 19:48 Blast Cells % 0 % 10/07/16 19:48 Nucleated RBC % Not Reportable 10/07/16 19:48 Seg Neutrophils # Man 1.8 K/mm3 (1.8-7.7) 10/07/16 19:48 Band Neutrophils # 0.0 K/mm3 10/07/16 19:48 Lymphocytes # (Manual) 1.0 K/mm3 (1.2-5.4) L 10/07/16 19:48 Abs React Lymphs (Man) 0.0 K/mm3 10/07/16 19:48 Monocytes # (Manual) 0.4 K/mm3 (0.0-0.8) 10/07/16 19:48 Eosinophils # (Manual) 0.1 K/mm3 (0.0-0.4) 10/07/16 19:48 Basophils # (Manual) 0.0 K/mm3 (0.0-0.1) 10/07/16 19:48 Metamyelocytes # 0.0 K/mm3 10/07/16 19:48 Myelocytes # 0.0 K/mm3 10/07/16 19:48 Promyelocytes # 0.0 K/mm3 10/07/16 19:48 Blast Cells # 0.0 K/mm3 10/07/16 19:48 WBC Morphology Not Reportable 10/07/16 19:48 Hypersegmented Neuts Not Reportable 10/07/16 19:48 Hyposegmented Neuts Not Reportable 10/07/16 19:48 Hypogranular Neuts Not Reportable 10/07/16 19:48 Smudge Cells Not Reportable 10/07/16 19:48 Toxic Granulation Not Reportable 10/07/16 19:48 Toxic Vacuolation Not Reportable 10/07/16 19:48 Dohle Bodies Not Reportable 10/07/16 19:48 Pelger-Huet Anomaly Not Reportable 10/07/16 19:48 Erika Rods Not Reportable 10/07/16 19:48 Platelet Estimate Consistent w auto 10/07/16 19:48 Clumped Platelets Not Reportable 10/07/16 19:48 Plt Clumps, EDTA Not Reportable 10/07/16 19:48 Large Platelets Not Reportable 10/07/16 19:48 Giant Platelets Not Reportable 10/07/16 19:48 Platelet Satelliting Not Reportable 10/07/16 19:48 Plt Morphology Comment Not Reportable 10/07/16 19:48 RBC Morphology Not Reportable 10/07/16 19:48 Dimorphic RBCs Not Reportable 10/07/16 19:48 Polychromasia Not Reportable 10/07/16 19:48 Hypochromasia Not Reportable 10/07/16 19:48 Poikilocytosis Not Reportable 10/07/16 19:48 Anisocytosis Few 10/07/16 19:48 Microcytosis Not Reportable 10/07/16 19:48 Macrocytosis Not Reportable 10/07/16 19:48 Spherocytes Not Reportable 10/07/16 19:48 Pappenheimer Bodies Not Reportable 10/07/16 19:48 Sickle Cells Not Reportable 10/07/16 19:48 Target Cells Not Reportable 10/07/16 19:48 Tear Drop Cells Not Reportable 10/07/16 19:48 Ovalocytes Not Reportable 10/07/16 19:48 Helmet Cells Not Reportable 10/07/16 19:48 [place] Bodies Not Reportable 10/07/16 19:48 [place] Rings Not Reportable 10/07/16 19:48 [place] Cells Not Reportable 10/07/16 19:48 Bite Cells Not Reportable 10/07/16 19:48 Crenated Cell Not Reportable 10/07/16 19:48 Elliptocytes Not Reportable 10/07/16 19:48 Acanthocytes (Spur) Not Reportable 10/07/16 19:48 Rouleaux Not Reportable 10/07/16 19:48 Hemoglobin C Crystals Not Reportable 10/07/16 19:48 Schistocytes Not Reportable 10/07/16 19:48 Malaria parasites Not Reportable 10/07/16 19:48 Andrew Bodies Not Reportable 10/07/16 19:48 Hem Pathologist Commnt No 10/07/16 19:48 PT 13.7 Sec. (12.2-14.9) 10/08/16 11:08 INR 1.06 (0.87-1.13) 10/08/16 11:08 D-Dimer 644.37 ng/mlDDU (0-234) H 10/08/16 11:08 Sodium 141 mmol/L (137-145) 10/07/16 19:53 Potassium 4.2 mmol/L (3.6-5.0) 10/07/16 19:53 Chloride 104.6 mmol/L (98-107) 10/07/16 19:53 Carbon Dioxide 24 mmol/L (22-30) 10/07/16 19:53 Anion Gap 17 mmol/L 10/07/16 19:53 BUN 10 mg/dL (7-17) 10/07/16 19:53 Creatinine 0.6 mg/dL (0.7-1.2) L 10/07/16 19:53 Estimated GFR > 60 ml/min 10/07/16 19:53 BUN/Creatinine Ratio 16.66 % 10/07/16 19:53 Glucose 92 mg/dL (65-100) 10/07/16 19:53 Calcium 8.7 mg/dL (8.4-10.2) 10/07/16 19:53 Troponin T < 0.010 ng/mL (0.00-0.029) 10/08/16 02:27 NT-Pro-B Natriuret Pep 1450 pg/mL (0-900) H 10/08/16 02:27 Urine Color Yellow (Yellow) 10/07/16 Unknown Urine Turbidity Clear (Clear) 10/07/16 Unknown Urine pH 5.0 (5.0-7.0) 10/07/16 Unknown Ur Specific [employer] 1.015 (1.003-1.030) 10/07/16 Unknown Urine Protein <15 mg/dl mg/dL (Negative) 10/07/16 Unknown Urine Glucose (UA) Neg mg/dL (Negative) 10/07/16 Unknown Urine Ketones Neg mg/dL (Negative) 10/07/16 Unknown Urine Blood Neg (Negative) 10/07/16 Unknown Urine Nitrite Neg (Negative) 10/07/16 Unknown Urine Bilirubin Neg (Negative) 10/07/16 Unknown Urine Urobilinogen < 2.0 mg/dL (<2.0) 10/07/16 Unknown Ur Leukocyte Esterase Sm (Negative) 10/07/16 Unknown Urine WBC (Auto) 1.0 /HPF (0.0-6.0) 10/07/16 Unknown Urine RBC (Auto) 4.0 /HPF (0.0-6.0) 10/07/16 Unknown U Epithel Cells (Auto) 4.0 /HPF (0-13.0) 10/07/16 Unknown Urine Bacteria (Auto) 1+ /HPF (Negative) 10/07/16 Unknown Urine Opiates Screen Presumptive negative 10/07/16 Unknown Urine Methadone Screen Presumptive negative 10/07/16 Unknown Ur Barbiturates Screen Presumptive negative 10/07/16 Unknown Ur Phencyclidine Scrn Presumptive negative 10/07/16 Unknown Ur Amphetamines Screen Presumptive negative 10/07/16 Unknown U Benzodiazepines Scrn Presumptive positive 10/07/16 Unknown Urine Cocaine Screen Presumptive negative 10/07/16 Unknown U Marijuana (THC) Screen Presumptive negative 10/07/16 Unknown Drugs of Abuse Note Disclamer 10/07/16 Unknown Plasma/Serum Alcohol < 0.01 gm% (0-0.07) 10/07/16 19:52
[2016-10-09] MEDS: LASIX IV SCH (17:38)
[2016-10-09] MEDS: LEVAQUIN PO SCH (17:42)
[2016-10-09] MEDS: PERCOCET 5/325 PO PRN (20:28)
[2016-10-09] MEDS: CARAFATE PO SCH (21:48)
[2016-10-09] MEDS: LOVENOX SUB-Q SCH (21:48)
[2016-10-09] MEDS ORDERED: LOVENOX SUB-Q SCH (22:00)
[2016-10-09] MEDS ORDERED: DECADRON IV ONE (23:12)
[2016-10-09] MEDS ORDERED: BENADRYL PO PRN (23:14)
[2016-10-10] MEDS: NEURONTIN PO SCH ×3 (06:12→22:17)
[2016-10-10] MEDS: LASIX IV SCH ×3 (06:12→22:18)
[2016-10-10] MEDS: VIREAD PO SCH (11:07)
[2016-10-10] MEDS: EMTRIVA PO SCH (11:07)
[2016-10-10] MEDS: VITAMIN B-1 PO SCH (11:07)
[2016-10-10] MEDS: PROTONIX PO SCH (11:08)
[2016-10-10] MEDS: ZESTRIL PO SCH (11:08)
[2016-10-10] MEDS: HABITROL TD SCH (11:08)
[2016-10-10] MEDS: ISENTRESS PO SCH ×2 (11:08→21:51)
[2016-10-10] MEDS: ATIVAN IV PRN (16:05)
[2016-10-10] MEDS ORDERED: ZITHROMAX 500 MG in NACL 0.9% 250ML 250 ML IV SCH (18:00)
--- NOTE | 2016-10-10 18:47 | Progress Note ---
Assessment and Plan Assessment and plan: Acute on chronic systolic CHF. Lasix iv, Bisoprolol po. She feels better, less leg swelling. Cont fluid I/O Bilateral pneumonia. Continue Levaquin iv. She feels better. Likely discharge home tomorrow. HIV infection. Continue HAART. Alcohol abuse. Dyslipidemia DVT prophylaxis with Lovenox. FULL CODE STATUS History Interval history: less shortness of breath, No chest pain Less edema of legs Hospitalist Physical - Physical exam Narrative exam: Gen appearance: not in acute distress, HEENT: Normocephalic, atraumatic Neck : supple, no JVD Lungs: Patient has crackles bibasilar, no wheezing . Heart : S1 and S2 regular, no murmurs rubs or gallop, Abdomen: soft nontender, nondistended, normal bowel sounds Extremities: less leg edema, no clubbing or cyanosis, Neuro :awake alert oriented 3, no focal signs Psych :appropriate mood skin: No rash - Constitutional Vitals: Temp Pulse Resp BP Pulse Ox 97.4 F L 78 20 126/66 96 10/10/16 08:10 10/10/16 16:31 10/10/16 11:16 10/10/16 08:10 10/10/16 11:16 Results - Labs CBC & Chem 7: 10/07/16 19:48 10/07/16 19:53 Labs: Laboratory Last Values WBC 3.2 K/mm3 (4.5-11.0) L 10/07/16 19:48 RBC 2.59 M/mm3 (3.65-5.03) L 10/07/16 19:48 Hgb 9.1 gm/dl (10.1-14.3) L 10/07/16 19:48 Hct 27.3 % (30.3-42.9) L 10/07/16 19:48 MCV 105 fl (79-97) H 10/07/16 19:48 MCH 35 pg (28-32) H 10/07/16 19:48 MCHC 33 % (30-34) 10/07/16 19:48 RDW 14.9 % (13.2-15.2) 10/07/16 19:48 Plt Count 186 K/mm3 (140-440) 10/07/16 19:48 [place] % (Auto) Project Management Intern 10/07/16 19:48 Add Manual Diff Complete 10/07/16 19:48 Total Counted 100 10/07/16 19:48 Seg Neuts % (Manual) 56.0 % (40.0-70.0) 10/07/16 19:48 Band Neutrophils % 0 % 10/07/16 19:48 Lymphocytes % (Manual) 31.0 % (13.4-35.0) 10/07/16 19:48 Reactive Lymphs % (Man) 0 % 10/07/16 19:48 Monocytes % (Manual) 11.0 % (0.0-7.3) H 10/07/16 19:48 Eosinophils % (Manual) 2.0 % (0.0-4.3) 10/07/16 19:48 Basophils % (Manual) 0 % (0.0-1.8) 10/07/16 19:48 Metamyelocytes % 0 % 10/07/16 19:48 Myelocytes % 0 % 10/07/16 19:48 Promyelocytes % 0 % 10/07/16 19:48 Blast Cells % 0 % 10/07/16 19:48 Nucleated RBC % Not Reportable 10/07/16 19:48 Seg Neutrophils # Man 1.8 K/mm3 (1.8-7.7) 10/07/16 19:48 Band Neutrophils # 0.0 K/mm3 10/07/16 19:48 Lymphocytes # (Manual) 1.0 K/mm3 (1.2-5.4) L 10/07/16 19:48 Abs React Lymphs (Man) 0.0 K/mm3 10/07/16 19:48 Monocytes # (Manual) 0.4 K/mm3 (0.0-0.8) 10/07/16 19:48 Eosinophils # (Manual) 0.1 K/mm3 (0.0-0.4) 10/07/16 19:48 Basophils # (Manual) 0.0 K/mm3 (0.0-0.1) 10/07/16 19:48 Metamyelocytes # 0.0 K/mm3 10/07/16 19:48 Myelocytes # 0.0 K/mm3 10/07/16 19:48 Promyelocytes # 0.0 K/mm3 10/07/16 19:48 Blast Cells # 0.0 K/mm3 10/07/16 19:48 WBC Morphology Not Reportable 10/07/16 19:48 Hypersegmented Neuts Not Reportable 10/07/16 19:48 Hyposegmented Neuts Not Reportable 10/07/16 19:48 Hypogranular Neuts Not Reportable 10/07/16 19:48 Smudge Cells Not Reportable 10/07/16 19:48 Toxic Granulation Not Reportable 10/07/16 19:48 Toxic Vacuolation Not Reportable 10/07/16 19:48 Dohle Bodies Not Reportable 10/07/16 19:48 Pelger-Huet Anomaly Not Reportable 10/07/16 19:48 Erika Rods Not Reportable 10/07/16 19:48 Platelet Estimate Consistent w auto 10/07/16 19:48 Clumped Platelets Not Reportable 10/07/16 19:48 Plt Clumps, EDTA Not Reportable 10/07/16 19:48 Large Platelets Not Reportable 10/07/16 19:48 Giant Platelets Not Reportable 10/07/16 19:48 Platelet Satelliting Not Reportable 10/07/16 19:48 Plt Morphology Comment Not Reportable 10/07/16 19:48 RBC Morphology Not Reportable 10/07/16 19:48 Dimorphic RBCs Not Reportable 10/07/16 19:48 Polychromasia Not Reportable 10/07/16 19:48 Hypochromasia Not Reportable 10/07/16 19:48 Poikilocytosis Not Reportable 10/07/16 19:48 Anisocytosis Few 10/07/16 19:48 Microcytosis Not Reportable 10/07/16 19:48 Macrocytosis Not Reportable 10/07/16 19:48 Spherocytes Not Reportable 10/07/16 19:48 Pappenheimer Bodies Not Reportable 10/07/16 19:48 Sickle Cells Not Reportable 10/07/16 19:48 Target Cells Not Reportable 10/07/16 19:48 Tear Drop Cells Not Reportable 10/07/16 19:48 Ovalocytes Not Reportable 10/07/16 19:48 Helmet Cells Not Reportable 10/07/16 19:48 [place] Bodies Not Reportable 10/07/16 19:48 [place] Rings Not Reportable 10/07/16 19:48 [place] Cells Not Reportable 10/07/16 19:48 Bite Cells Not Reportable 10/07/16 19:48 Crenated Cell Not Reportable 10/07/16 19:48 Elliptocytes Not Reportable 10/07/16 19:48 Acanthocytes (Spur) Not Reportable 10/07/16 19:48 Rouleaux Not Reportable 10/07/16 19:48 Hemoglobin C Crystals Not Reportable 10/07/16 19:48 Schistocytes Not Reportable 10/07/16 19:48 Malaria parasites Not Reportable 10/07/16 19:48 Andrew Bodies Not Reportable 10/07/16 19:48 Hem Pathologist Commnt No 10/07/16 19:48 PT 13.7 Sec. (12.2-14.9) 10/08/16 11:08 INR 1.06 (0.87-1.13) 10/08/16 11:08 D-Dimer 644.37 ng/mlDDU (0-234) H 10/08/16 11:08 Sodium 141 mmol/L (137-145) 10/07/16 19:53 Potassium 4.2 mmol/L (3.6-5.0) 10/07/16 19:53 Chloride 104.6 mmol/L (98-107) 10/07/16 19:53 Carbon Dioxide 24 mmol/L (22-30) 10/07/16 19:53 Anion Gap 17 mmol/L 10/07/16 19:53 BUN 10 mg/dL (7-17) 10/07/16 19:53 Creatinine 0.6 mg/dL (0.7-1.2) L 10/07/16 19:53 Estimated GFR > 60 ml/min 10/07/16 19:53 BUN/Creatinine Ratio 16.66 % 10/07/16 19:53 Glucose 92 mg/dL (65-100) 10/07/16 19:53 POC Glucose 151 (70-105) H 10/10/16 08:51 Calcium 8.7 mg/dL (8.4-10.2) 10/07/16 19:53 Troponin T < 0.010 ng/mL (0.00-0.029) 10/08/16 02:27 NT-Pro-B Natriuret Pep 1450 pg/mL (0-900) H 10/08/16 02:27 Urine Color Yellow (Yellow) 10/07/16 Unknown Urine Turbidity Clear (Clear) 10/07/16 Unknown Urine pH 5.0 (5.0-7.0) 10/07/16 Unknown Ur Specific [place] 1.015 (1.003-1.030) 10/07/16 Unknown Urine Protein <15 mg/dl mg/dL (Negative) 10/07/16 Unknown Urine Glucose (UA) Neg mg/dL (Negative) 10/07/16 Unknown Urine Ketones Neg mg/dL (Negative) 10/07/16 Unknown Urine Blood Neg (Negative) 10/07/16 Unknown Urine Nitrite Neg (Negative) 10/07/16 Unknown Urine Bilirubin Neg (Negative) 10/07/16 Unknown Urine Urobilinogen < 2.0 mg/dL (<2.0) 10/07/16 Unknown Ur Leukocyte Esterase Sm (Negative) 10/07/16 Unknown Urine WBC (Auto) 1.0 /HPF (0.0-6.0) 10/07/16 Unknown Urine RBC (Auto) 4.0 /HPF (0.0-6.0) 10/07/16 Unknown U Epithel Cells (Auto) 4.0 /HPF (0-13.0) 10/07/16 Unknown Urine Bacteria (Auto) 1+ /HPF (Negative) 10/07/16 Unknown Urine Opiates Screen Presumptive negative 10/07/16 Unknown Urine Methadone Screen Presumptive negative 10/07/16 Unknown Ur Barbiturates Screen Presumptive negative 10/07/16 Unknown Ur Phencyclidine Scrn Presumptive negative 10/07/16 Unknown Ur Amphetamines Screen Presumptive negative 10/07/16 Unknown U Benzodiazepines Scrn Presumptive positive 10/07/16 Unknown Urine Cocaine Screen Presumptive negative 10/07/16 Unknown U Marijuana (THC) Screen Presumptive negative 10/07/16 Unknown Drugs of Abuse Note Disclamer 10/07/16 Unknown Plasma/Serum Alcohol < 0.01 gm% (0-0.07) 10/07/16 19:52
[2016-10-10] MEDS: CARAFATE PO SCH (21:51)
[2016-10-10] MEDS: LOVENOX SUB-Q SCH (21:51)
[2016-10-11] MEDS: NEURONTIN PO SCH ×2 (04:48→04:59)
[2016-10-11] MEDS: ATIVAN IV PRN ×2 (04:57→11:29)
[2016-10-11] MEDS: LASIX IV SCH (04:59)
[2016-10-11 08:34] VITALS: BP 112/58
--- NOTE | 2016-10-11 09:55 | Discharge Summary ---
Providers - Providers Date of Admission: 10/08/16 13:51 Date of discharge: 10/11/16 Attending physician: SONG PATEL Primary care physician: JENNIFER FONG MD Hospitalization Condition: Good Hospital course: Patient is 66 yo with HIV infection, CHF, alcohol abuse. She presented with leg edema and shortness of breath. She was diagnosed with bilateral edema and CHF exacerbation. She was admitted , put on Oxygen, Lasix iv and Antibiotics iv. She improved after few days, Shortness of breath resolved, leg edema subsided. Oxygen was discontinued. She was subsequently discharged home. She was counseled on quitting alcohol for 15 mins. Total time spent on discharge , 35 mins. Disposition: DISCHARGED TO HOME OR SELFCARE - Discharge Diagnoses (1) Pneumonia Status: Acute Qualifiers: Pneumonia type: P Aspiration pneumonia type: A Laterality: bilateral Lung location: L (2) CHF exacerbation Status: Acute Qualifiers: Congestive heart failure type: systolic Qualified Code(s): I50.23 - Acute on chronic systolic (congestive) heart failure (3) HIV disease Status: Chronic (4) Anemia in chronic illness Status: Chronic Core Measure Documentation - Palliative Care Palliative Care/ Comfort Measures: Not Applicable - Core Measures Any of the following diagnoses?: heart failure - Heart Failure Discharge Requirements MIGUEL ANGEL/ARB for LVSD if EF <40%: Yes Beta aguila at discharge: Yes Exam - Physical Exam Narrative exam: Gen appearance: not in acute distress, HEENT: Normocephalic, atraumatic Neck : supple, no JVD Lungs: lungs clear, no wheezing . Heart : S1 and S2 regular, no murmurs rubs or gallop, Abdomen: soft nontender, nondistended, normal bowel sounds Extremities: less leg edema, no clubbing or cyanosis, Neuro :awake alert oriented 3, no focal signs Psych :appropriate mood skin: No rash - Constitutional Vitals: Temp Pulse Resp BP Pulse Ox 98.7 F 66 18 112/58 99 10/11/16 08:00 10/11/16 08:00 10/11/16 08:00 10/11/16 08:00 10/11/16 08:00 Plan Activity: advance as tolerated Diet: low fat, low cholesterol, low salt Additional Instructions: 1.Follow up with PCP in 3-5 days. Follow up with: [facility] [Provider Group] - 7 Days PRIMARY CARE, [Primary Care Provider] - 3-5 Days Prescriptions: Azithromycin [Zithromax] 250 mg PO DAILY #5 tablet Furosemide [Lasix TAB] 40 mg PO QDAY #7 tablet Oxycodone HCl/Acetaminophen [Percocet 10/325 mg] 1 each PO Q6HR PRN #12 tablet PRN Reason: Pain
[2016-10-11] MEDS: ZESTRIL PO SCH (11:31)
[2016-10-11] MEDS: PROTONIX PO SCH (11:31)
[2016-10-11] MEDS: VITAMIN B-1 PO SCH (11:31)
[2016-10-11] MEDS: ISENTRESS PO SCH (11:31)
[2016-10-11] MEDS: VIREAD PO SCH (11:31)
[2016-10-11] MEDS: EMTRIVA PO SCH (11:31)
[2016-10-11] MEDS: HABITROL TD SCH (11:32)
[2016-10-11] MEDS: BACTRIM DS PO SCH (11:32)
--- NOTE | 2016-10-21 08:41 | Query- General ---
Wisam Ignacio___Jacquelyn Date: 10/21/16 Director Gift/CDS: Raphael / Radha Phone#:____[phone] Exercise your independent professional judgment when responding to this query. Questions asked do not imply a particular answer is desired or expected. We greatly appreciate your clarification on this issue. Clinical Documentation States: 66 year old female was admitted on 10/08/16. The H&P states " alcohol abuse who has been in detox program here in [place] but she is from [place] " The progress note (10/10/16) states " Alcohol abuse " Given the above clinical scenario can you please provide an appropriate diagnosis based on your knowledge of the patient: Please clarify the alcohol abuse counseling status: PHYSICIAN RESPONSE: [ x ] Alcohol abuse counseling was done, amount of time spent 15 mins [ ] Alcohol abuse counseling was not done [ ] Other(Please specify) [ ] Not applicable Present on Admission: [x ] Yes (Y) [ ] Clinically undeterminable (W) [ ]No(N) Please also document response in your Progress Notes and/or Discharge Summary and indicate if the condition was present on admission. FRANK
== END 2016-10-11 13:47 | disposition home or self-care (01) | DRG 177 ==
LOC: ED 18:35 → 4A 10-08 13:51
PROVIDERS: ADMIT Internal Medicine; ATTEND Internal Medicine
PROC: HZ34ZZZ Individual Counseling for Substance Abuse Treatment, Interpersonal (ICD-10-PCS; principal; 2016-10-08)
DX: J69.0 Pneumonitis due to inhalation of food and vomit (principal); B20 Human immunodeficiency virus [HIV] disease; J96.00 Acute respiratory failure, unspecified whether with hypoxia or hypercapnia; I50.43 Acute on chronic combined systolic (congestive) and diastolic (congestive) heart failure; I11.0 Hypertensive heart disease with heart failure; F17.200 Nicotine dependence, unspecified, uncomplicated; M19.90 Unspecified osteoarthritis, unspecified site; E78.5 Hyperlipidemia, unspecified; G62.9 Polyneuropathy, unspecified; F10.10 Alcohol abuse, uncomplicated; Z88.8 Allergy status to other drugs, medicaments and biological substances; Z88.0 Allergy status to penicillin; Z88.6 Allergy status to analgesic agent; Z90.710 Acquired absence of both cervix and uterus; Z90.49 Acquired absence of other specified parts of digestive tract; Z82.49 Family history of ischemic heart disease and other diseases of the circulatory system; Z71.6 Tobacco abuse counseling; Z71.41 Alcohol abuse counseling and surveillance of alcoholic
CPT/HCPCS: 36415; 71010; 71275; 80048; 80307; 80320; 81001; 82962; 83880; 84484; 85007; 85025; 85379; 85610; 87040; 90732; 93005; 93010; 93306; 93970; 96374; G0480; J0456; J1100; J1650; J1940; J2060; J7050; Q9967